=== PATIENT | female | born 1985 | race Two or more races ===

== ENCOUNTER → 2020-03-13 | Outpatient (CLI) | payer OTHER ==
[2020-03-09 19:22] VITALS: BP 142/81
[~2020-03-13] MED LIST: ASPI325T11 PO; HYDR-3164 PO; OXYC1TAB15 PO; PROM25TA10 PO
== END | disposition home or self-care (01) ==
LOC: LAB 14:44
PROVIDERS: ATTEND Orthopaedic Surgery
DX: Z01.818 Encounter for other preprocedural examination (principal); Z11.59 Encounter for screening for other viral diseases; S82.62XA Displaced fracture of lateral malleolus of left fibula, initial encounter for closed fracture; X58.XXXA Exposure to other specified factors, initial encounter; Y93.89 Activity, other specified; Y92.89 Other specified places as the place of occurrence of the external cause; Y99.8 Other external cause status
CPT/HCPCS: U0003-CS

== ENCOUNTER 2020-03-17 10:09 | Day surgery (SDC) | payer OTHER ==
[~2020-03-17] VITALS: Ht 167.6 cm; Wt 86.0 kg
[~2020-03-17 10:09] MED LIST changes: -ASPI325T11 PO; +HYDROmorphone 2 MG/ML VIAL IV PRN; +LIDOCAINE 1% PF 2 ML VIAL. ID PRN; +MORPHINE SULFATE 2 MG/ML VIAL. IV PRN; +ONDANSETRON PF 4 MG/2 ML VIAL. IV PRN; -OXYC1TAB15 PO; +PROCHLORPERAZINE 10 MG/2 ML VIAL. IV PRN; -PROM25TA10 PO; +fentaNYL PF VIAL 100 MCG/2 ML VIAL IV PRN
[2020-03-17] MEDS: IV RINGERS,LACTATED 1000ML 1,000 ML IV SCH ×2 (10:58→14:45)
[2020-03-17] MEDS ORDERED: KETOROLAC 30 MG/ML VIAL. ONE (12:10)
[2020-03-17] MEDS ORDERED: PROPOFOL 10 MG/ML (20ML) VIAL. IV ONE (12:10)
[2020-03-17] MEDS ORDERED: SEVOFLURANE 61 TO 120 MINUTES. IH ONE (12:10)
[2020-03-17] MEDS ORDERED: LIDOCAINE 2% PF 5 ML VIAL. ONE (12:10)
[2020-03-17] MEDS ORDERED: ONDANSETRON PF 4 MG/2 ML VIAL. ONE (12:10)
[2020-03-17] MEDS ORDERED: DEXAMETHASONE SOD PHOS 4 MG/ML VIAL ONE (12:10)
[2020-03-17] MEDS ORDERED: MIDAZOLAM HCL/PF 2 MG/2 ML VIAL. ONE (12:11)
[2020-03-17] MEDS ORDERED: HYDROmorphone 2 MG/ML VIAL ONE (13:28)
[2020-03-17] MEDS ORDERED: BUPIVACAINE-EPI 0.25%-1:200000 MPF 30 ML VIAL. ONE (13:44)
[2020-03-17] MEDS ORDERED: ESMOLOL 100 MG/10 ML VIAL. IVP ONE (14:07)
--- NOTE | 2020-03-17 14:08 | PDOC4 ---
Operative Note Operative Note Date of Procedure: March 17, 2020 Pre-Op Diagnosis: Displaced fracture of lateral malleolus of left fibula, initial encounter for closed fracture - S82.62XA Post-Op Diagnosis: same Procedure: left ankle open treatment of distal fibular fracture (lateral malleolus) with internal fixation CPT 24719 Anesthesia Type: General Surgeon: Rufina Solis MD Asphalt Tamping Machine Operator: LARISA Sam EBL: 50 mL Specimens Obtained: none Drains: none Complications: none Tourniquet time: 15 minutes Tourniquet pressure: 300 mm Hg Implants: Synthes stainless small fragment 3.5 mm INDICATIONS FOR PROCEDURE: The patient is a 34-year-old with a displaced unstable left ankle fracture. The patient and I discussed the risks and benefits of operative treatment. Surgical fixation likely will give a better long-term outcome. We talked about the risks of the operative fixation such as the risks of bleeding, infection, blood clots, need for hardware removal, stiffness or other potential surgical or anesthetic complications. All of her questions about surgery were answered and she desired to proceed. Written consent was obtained. PROCEDURE IN DETAIL: The patient was identified in the preoperative holding area. The correct left lower extremity was marked by me. The patient was taken to the operating room, where a general anesthetic was used. Preoperative antibiotics were given intravenously. A timeout procedure was performed. A padded tourniquet was used on the upper left thigh. A bump was placed under the left buttock. The limb was prepared in sterile fashion with ChloraPrep solution, and sterile drapes were applied with a sterile glove over the toes and heel. An Esmarch bandage was used to exsanguinate the limb and the tourniquet was inflated. The direct lateral approach to the distal fibula was used. Sharp dissection was used and Bovie electrocautery was used as needed for hemostasis. The fracture was easily identified and exposed. The fracture was gapped open with traction, and fracture hematoma was cleared with curettes, rongeurs and irrigation. I then used longitudinal traction and internal rotation to help reduce the fracture, and a lobster claw bone clamp was used to now reduce the fracture. An interfragmentary lag screw was placed using a threaded hole and a gliding hole, across the fracture site to partially stabilize it, so that the bone clamp could be removed. I applied a 3.5 mm one-third tubular plate laterally, and contoured the distal portion of the plate with a plate carrizales. Cortical screws were placed initially to stabilize the plate and compress it to the bone and help maintain the reduction. Locking screws were then placed in distal fragment, and the bone clamps were able to be removed. Satisfactory reduction and fixation was obtained of the fibula which was confirmed using the image intensifier. I now stressed the syndesmosis and the medial clear space was stable. The tourniquet was released. Copious saline irrigation was used. Bovie electrocautery was used for hemostasis. Local anesthetic, 30 mL of 0.25% bupivacaine with epinephrine with epinephrine was injected into the skin edges. Needle and sponge counts were correct. The incision was closed in layers. I used #2-0 Vicryl in the subcutaneous tissues, and deondre in the skin. Xeroform and a sterile dressing and splint were applied. There were no apparent complications. RUFINA SOLIS MD Mar 17, 2020 14:08
[2020-03-17] MEDS ORDERED: PROCHLORPERAZINE 10 MG/2 ML VIAL. ONE (14:21)
[2020-03-17] MEDS ORDERED: fentaNYL PF VIAL 100 MCG/2 ML VIAL ONE (14:22)
[2020-03-17] MEDS: fentaNYL PF VIAL 100 MCG/2 ML VIAL IV PRN ×2 (14:26→14:46)
[2020-03-17] MEDS ORDERED: oxyCODONE/APAP 5/325 1 TAB TABLET PO ONE ×2 (14:30)
[2020-03-17] MEDS ORDERED: OXYC1TAB15 PO (14:30)
[2020-03-17] MEDS ORDERED: PROM25TA10 PO (14:31)
[2020-03-17] MEDS ORDERED: ASPI325T11 PO (14:32)
[2020-03-17 15:19] VITALS: BP 158/73
== END 2020-03-17 16:41 | disposition home or self-care (01) ==
LOC: SURG 10:09
PROVIDERS: ATTEND Orthopaedic Surgery
DX: S82.62XA Displaced fracture of lateral malleolus of left fibula, initial encounter for closed fracture (principal); Z79.82 Long term (current) use of aspirin; Z79.899 Other long term (current) drug therapy; X58.XXXA Exposure to other specified factors, initial encounter; Y93.89 Activity, other specified; Y92.89 Other specified places as the place of occurrence of the external cause; Y99.8 Other external cause status
CPT/HCPCS: 27792; 36415; 84702; A7015; C1713; J0690; J0780; J1100; J1170; J1885; J2250; J2405; J2704; J3010; J3490